=== PATIENT | male | born 1950 | race Caucasian/White ===

== ENCOUNTER 2016-10-27 02:11 | Emergency (ER) | payer MEDICAID, MEDICARE ==
[~2016-10-27] VITALS: Ht 182.9 cm; Wt 72.7 kg
[2016-10-27 02:26] VITALS: Ht 182.9 cm; Wt 72.7 kg
[2016-10-27] MEDS ORDERED: HYDROCODONE/APAP (10/325) TAB PO ONE (03:00)
[2016-10-27] MEDS ORDERED: TRAM50TA2 PO (03:22)
--- NOTE | 2016-10-27 03:29 | ERD ---
ER Documentation Chief Complaint Date/Time DATE: 10/27/16 TIME: 03:24 Chief Complaint C/O GENERALIZED CHRONIC PAIN, STATES "DOES NOT WANT TO BE OUT IN THE COLD" HPI This is a 66-year-old homeless man who is brought in complaining of thoracic pain. The patient states that he was seen at outside ER about 2 weeks ago due to a fall and says he has a compression fracture in his thoracic spine. He also states that he does not want to be sleeping in the cold rain tonight and he is here for that reason as well. 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 He has no numbness weakness complaints no vomiting chest pain shortness of breath or cough or fever ROS All systems reviewed and are negative except as per history of present illness. Medications Home Meds Active Scripts Tramadol HCl (Tramadol HCl) 50 Mg Tablet, 50 MG PO Q6, #20 TAB Prov:ADOLFO HERNANDEZTANVIHector BeltranNoemi DO 10/27/16 Allergies Allergies: Coded Allergies: Penicillins (Verified Allergy, Mild, RASH, REDNESS, 07/16/15) PMhx/Soc History of Surgery: Yes (CEREBRAL SX) Anesthesia Reaction: No Hx Neurological Disorder: No Hx Respiratory Disorders: Yes (SOB c exertion) Hx Cardiac Disorders: No Hx Psychiatric Problems: Yes (depression, anxiety) Hx Miscellaneous Medical Probl: Yes (SKIN CA, ALCOHOL ABUSE, PANCREATITIS, HTN , ANEMIA, INTRACRANIAL HEMORRHAGE) Hx Alcohol Use: Yes (A pint of Vodka daily) Hx Substance Use: Yes (oxycontin) Hx Tobacco Use: No Smoking Status: Never smoker FmHx Family History: No coronary disease Physical Exam Vitals Vital Signs Date Time Temp Pulse Resp B/P Pulse Ox O2 Delivery O2 Flow Rate FiO2 10/27/16 02:26 97.6 89 19 112/59 99 Physical Exam Const: Well-developed, well-nourished Head: Atraumatic, normocephalic Eyes: Normal Conjunctiva, PERRLA, EOMI, normal sclera, no nystagmusleft eye only. Right eye is missing with loss of skin above the right eye due to resection of cancer ENT: Normal External Ears, Nose and Mouth, moist mucus membranes. Neck: Full range of motion. No meningismus, no lymphadenopathy. Resp: Clear to auscultation bilaterally, no wheezing, rhonchi, rales Cardio: Regular rate and rhythm, no murmurs, S1 S2 present Abd: Soft, non tender x 4, non distended. Normal bowel sounds, no guarding or rebound, no pulsitile abdominal masses or bruits Skin: No petechiae or rashes, no ecchymosis , no maculopapular rash Back: [Tender mid thoracic spine midline Ext: No cyanosis, or edema, FROM x 4, normal inspection, neurovascularly intact x 4 Neur: Awake and alert, STR 5/5 x 4, sensation intact x 4, no focal findings, cerebellum intact Psych: Normal Mood and Affect Results 24 hrs Current Medications Medications (Trade) Dose Ordered Sig/Jama Route PRN Reason Start Time Stop Time Status Last Admin Dose Admin Acetaminophen/ Hydrocodone Bitart ([place] (10)) 1 tab ONCE ONCE PO 10/27/16 03:00 10/27/16 03:01 DC 10/27/16 03:13 Procedures/MDM Patient likely is here because he wants to get out of the cold rain. He is laying on his back without any pain. He is asking for snacks and water. Departure Diagnosis: Primary Impression: Back pain Back pain location: thoracic back pain Chronicity: unspecified Back pain laterality: midline Qualified Code: M54.6 - Midline thoracic back pain, unspecified chronicity Additional Impression: Homelessness Condition: Stable Patient Instructions: Back Pain (Acute Or Chronic) CALIN HERNANDEZ DO Oct 27, 2016 03:28
[2016-10-27 06:21] VITALS: BP 118/64; PULSE 78; RESP 20; TEMP 97.9
== END 2016-10-27 06:23 | disposition home or self-care (01) ==
LOC: E/R 02:11
DX: M54.6 Pain in thoracic spine (principal); I10 Essential (primary) hypertension; Z59.0 Homelessness; Z85.828 Personal history of other malignant neoplasm of skin
CPT/HCPCS: 99283

== ENCOUNTER 2016-10-30 10:22 | Emergency (ER) | payer MEDICARE ==
[~2016-10-30] VITALS: Ht 170.2 cm; Wt 70.0 kg
[~2016-10-30 10:22] MED LIST: TRAM50TA2 PO
[2016-10-30] MEDS ORDERED: KETOROLAC 30 MG INJ IV STA (10:30)
[2016-10-30] MEDS ORDERED: SOD CHLORIDE 0.9% 1,000 ML IV STA (10:30)
[2016-10-30 10:36] VITALS: Ht 170.2 cm; Wt 70.0 kg
[2016-10-30 11:16] LABS: BASOPHILS % 0.3 % (0.0-2.0); EOSINOPHILS # 0.1 10^3/ul (0.0-0.5); EOSINOPHILS % 1.7 % (0.0-7.0); HEMATOCRIT 38.8 % (42.0-52.0); HEMOGLOBIN 13.1 g/dl (14.0-18.0); LYMPHOCYTES # 0.8 10^3/ul (0.8-2.9); LYMPHOCYTES % 11.2 % (15.0-51.0); MEAN CORPUSCULAR HEMOGLOBIN 31.4 pg (29.0-33.0); MEAN CORPUSCULAR HGB CONC 33.7 g/dl (32.0-37.0); MEAN CORPUSCULAR VOLUME 93.3 fl (82.0-101.0); MEAN PLATELET VOLUME 8.4 fl (7.4-10.4); MONOCYTES % 14.6 % (0.0-11.0); NEUTROPHILS % 72.2 % (39.0-77.0); PLATELET COUNT 172 10^3/UL (140-440); RED BLOOD COUNT 4.16 10^6/ul (4.70-6.10); RED CELL DISTRIBUTION WIDTH 17.6 % (11.5-14.5); UNCORRECTED WBC 6.9 10^3/ul (4.8-10.8); WHITE BLOOD COUNT 6.9 10^3/ul (4.8-10.8)
[2016-10-30] MEDS ORDERED: HYDROCODONE/APAP (10/325) TAB PO ONE (11:30)
[2016-10-30 11:32] LABS: CONDITION 1; LH ANALYZER COMMENTS 1
[2016-10-30 12:33] LABS: ALBUMIN 3.8 g/dl (3.3-4.9); CHLORIDE 95 mmol/L (97-110)
[2016-10-30 12:34] LABS: POTASSIUM 3.3 mmol/L (3.5-5.1); SODIUM 137 mmol/L (135-144)
[2016-10-30 12:36] LABS: ALANINE AMINOTRANSFERASE 48 IU/L (13-69); ALBUMIN/GLOBULIN RATIO 1.22; ALKALINE PHOSPHATASE 117 IU/L (42-121); ANION GAP 28 (8-16); ASPARTATE AMINO TRANSFERASE 89 IU/L (15-46); BILIRUBIN,INDIRECT 0.4 mg/dl (0-1.1); BILIRUBIN,TOTAL 0.4 mg/dl (0.2-1.3); BLOOD UREA NITROGEN 13 mg/dl (7-20); CARBON DIOXIDE 17 mmol/L (21-31); CREATININE 0.64 mg/dl (0.61-1.24); GLUCOSE 108 mg/dl (70-220); TOTAL PROTEIN 6.9 g/dl (6.1-8.1)
[2016-10-30 12:37] LABS: CALCIUM 8.5 mg/dl (8.4-10.2)
[2016-10-30 12:39] LABS: ACETAMINOPHEN < 10.0 ug/ml (10.0-30.0); ETHANOL < 10.0 mg/dl; SALICYLATE < 1.0 mg/dl (5.0-30.0)
[2016-10-30] MEDS ORDERED: POTASSIUM CHLORIDE (SR) 20 MEQ TAB PO STA ×2 (13:09→17:38)
--- NOTE | 2016-10-30 13:53 | ERD ---
ER Documentation Chief Complaint Date/Time DATE: 10/30/16 TIME: 13:49 Chief Complaint BIB RA FOR EVAL OF BACK PAIN. 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 The patient denies any chest pain or pressure that radiates to the neck arm back or jaw. The patient indicates that he was seen and evaluated in the hospital 48 hours ago but given that he is homeless has been sleeping on a street close by. Indicates that he was experiencing some back pain after sleeping on the sidewalk. He has a history of chronic lower back pain and indicates that this episode of back pain is a dull achy sensation exacerbated by movement. He has no numbness or tingling of his upper or lower extremities. He denies any changes in his bladder or bowel frequency, no saddle anesthesia and no fevers no shaking or chills. He denies a headache. He has no changes in vision of his left eye. ROS All systems reviewed and are negative except as per history of present illness. Medications Home Meds Discontinued Scripts Tramadol HCl (Tramadol HCl) 50 Mg Tablet, 50 MG PO Q6, #20 TAB Prov:CALIN HERNANDEZNoemi DO 10/27/16 Allergies Allergies: Coded Allergies: Penicillins (Verified Allergy, Mild, RASH, REDNESS, 10/30/16) PMhx/Soc History of Surgery: Yes (CEREBRAL SX) Anesthesia Reaction: No Hx Neurological Disorder: No Hx Respiratory Disorders: Yes (SOB c exertion) Hx Cardiac Disorders: No Hx Psychiatric Problems: Yes (depression, anxiety) Hx Miscellaneous Medical Probl: Yes (SKIN CA, ALCOHOL ABUSE, PANCREATITIS, HTN , ANEMIA, INTRACRANIAL HEMORRHAGE) Hx Alcohol Use: Yes (A pint of Vodka daily) Hx Substance Use: Yes (oxycontin) Hx Tobacco Use: No Smoking Status: Never smoker Physical Exam Vitals Vital Signs Date Time Temp Pulse Resp B/P Pulse Ox O2 Delivery O2 Flow Rate FiO2 10/30/16 14:39 84 16 116/67 99 Room Air 10/30/16 14:19 98.9 99 16 89/54 99 Room Air 10/30/16 10:36 97.4 86 19 117/56 100 Physical Exam Constitutional:Well-developed. Well-nourished. Disheveled. HEENT:Normocephalic. Atraumatic. Left pupil is reactive to light. Right pupil is enucleated due to carcinoma that extends to the right forehead. Moist mucous membranes.No tonsillar exudates. Neck: No nuchal rigidity. No lymphadenopathy. No posterior cervical spine tenderness or step-offs. Respiratory: Not using accessory muscles of respiration.Lungs were clear to auscultation bilaterally. No rhonchi. No rales. No wheezing. Cardiovascular: Regular rate regular rhythm.No murmurs. No rubs were appreciated.S1, S2 normal. Distal pulses are palpable 2+ bilaterally. GI: Abdomen was soft. Nontender. Non Distended. No pulsatile abdominal masses or bruits. No rebound. No guarding. Bowel sounds were present and normal. Muscle skeletal: Full range of motion of both the upper and lower extremities bilaterally.Normal muscle tone.No assymetrical calf tenderness or swelling. No reproducible tenderness over the paralumbar region and no tenderness with palpation or percussion of the thoracic or lumbar spinous processes. Straight leg test negative bilaterally Skin: No petechia, no purpura. No lesions on the palms or the soles of the feet. No maculopapular rash. 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 Gait observed and normal with no ataxia.Speech had regular rate and rhythm. No focal neurological deficits. Result Diagram: 10/30/16 1058 10/30/16 1210 Results 24 hrs Laboratory Tests Test 10/30/16 10:58 10/30/16 12:10 Basophils # 0.010^3/ul Basophils % 0.3% Blood Morphology Comment Eosinophils # 0.110^3/ul Eosinophils % 1.7% Hematocrit 38.8% Hemoglobin 13.1g/dl Lymphocytes # 0.810^3/ul Lymphocytes % 11.2% Mean Corpuscular Hemoglobin 31.4pg Mean Corpuscular Hemoglobin Concent 33.7g/dl Mean Corpuscular Volume 93.3fl Mean Platelet Volume 8.4fl Monocytes # 1.010^3/ul Monocytes % 14.6% Neutrophils # 5.010^3/ul Neutrophils % 72.2% Nucleated Red Blood Cells # 0.010^3/ul Nucleated Red Blood Cells % 0.0/100WBC Platelet Count 31201^3/UL Red Blood Count 4.1610^6/ul Red Cell Distribution Width 17.6% White Blood Count 6.910^3/ul Acetaminophen Level < 10.0ug/ml Alanine Aminotransferase (ALT/SGPT) 48IU/L Albumin 3.8g/dl Albumin/Globulin Ratio 1.22 Alkaline Phosphatase 117IU/L Anion Gap 28 Aspartate Amino Transf (AST/SGOT) 89IU/L Blood Urea Nitrogen 13mg/dl Calcium Level 8.5mg/dl Carbon Dioxide Level 17mmol/L Chloride Level 95mmol/L Creatinine 0.64mg/dl Direct Bilirubin 0.00mg/dl Ethyl Alcohol Level < 10.0mg/dl Globulin 3.10g/dl Glucose Level 108mg/dl Indirect Bilirubin 0.4mg/dl Potassium Level 3.3mmol/L Salicylates Level < 1.0mg/dl Sodium Level 137mmol/L Total Bilirubin 0.4mg/dl Total Protein 6.9g/dl Current Medications Medications (Trade) Dose Ordered Sig/Jama Route PRN Reason Start Time Stop Time Status Last Admin Dose Admin Sodium Chloride (NS) 1,000 ml @ 1,000 mls/hr Q1H STAT IV 10/30/16 10:30 10/30/16 11:29 Cancel Ketorolac Tromethamine (Toradol) 30 mg ONCE STAT IV 10/30/16 10:30 10/30/16 10:31 Cancel Acetaminophen/ Hydrocodone Bitart ([place] (10/325)) 1 tab ONCE ONCE PO 10/30/16 11:30 10/30/16 11:31 DC 10/30/16 11:21 Potassium Chloride (Klor-Con 20) 20 meq ONCE STAT PO 10/30/16 13:09 10/30/16 13:23 DC Procedures/MDM The patient presented to the emergency department with back pain. My differential diagnosis included but was not limited to spinal origins of the pain such as fracture, osteomyelitis, epidural abscess, neoplasm, spondylolishtesis, discogenic, cauda equina syndrome or musculoligamentous. Nonspinal causes such as AAA, upper UTI, renal colic, aortic dissection, abdominal neoplasm were also considered as an etiology into their pain. I obtained radiographic imaging and there is no evidence of acute fracture dislocation over the two-view radiograph of the lumbar spine. I also obtained ancillary laboratory work which showed no evidence of sepsis or renal failure. The patient is homeless and I did speak with the renal social worker who kindly came to the bedside to discuss options with the patient. He was given different resources. The patient was discharged home in fair condition. They were instructed to return to the emergency department at any time if there was any worsening of their condition. The patient stated they would follow up with their PCP in the next 24-48 hours to initiate a suitable medication regimen under the care of their PCP as well as to allow their PCP to monitor any drug reactions. The patient was discharged home with prescriptions after they gave informed consent to the new medication. They were also fully informed by myself on the adverse effects and adverse drug interactions in order to provide adequate safeguards to prevent possible adverse reactions to medications. Departure Diagnosis: Primary Impression: Back pain Back pain location: low back pain Chronicity: chronic Back pain laterality : midline Sciatica presence: without sciatica Qualified Code: M54.5 - Chronic midline low back pain without sciatica Additional Impression: Homeless Condition: Fair LALI CHAPMAN Oct 30, 2016 13:53
--- NOTE | 2016-10-30 14:28 | RADRPT ---
PROCEDURE: XR Lumbar Spine. CLINICAL INDICATION: Level of fall with subsequent low back pain. TECHNIQUE: AP, lateral and cone-down lateral view of the lumbar spine were obtained. COMPARISON: No. FINDINGS: There is a levoscoliosis at the thoracolumbar junction. There is a mild dextroscoliosis of the mid lumbar spine. There are osteophytes in the upper and mid lumbar spine. The neural canal and nerve root foramina are unremarkable. There is no evidence of spondylolysis or spondylolisthesis. Vascul ar calcifications are present in the abdominal aorta and common iliac arteries. IMPRESSION: 1. There is no evidence of an acute fracture involving the lower thoracic or lumbosacral spine. 2. Mild levoscoliosis of the lower thoracic spine with a mild dextroscoliosis centered at L3-4. 3. Atherosclerotic vascular disease. RPTAT:AAJJ Physician Corrine Date Time Electronically viewed and signed by Physician Corrine on 10/30/2016 14:28 MAU/
--- NOTE | 2016-10-30 19:21 | PSY ---
Date/Time of Note Date/Time of Note DATE: 10/30/16 TIME: 19:17 Psychiatric Subjective Eval Consent Pt consented to telemedicine: Yes Subjective Evaluation Patient location: emergency Chief Complaint: BIB RA FOR EVAL OF BACK PAIN. Reason for consult: SUCIDAL IDEATION History of present illness Patient reports depressed mood, not eating for three days, decreased energy and lack of motivation. He is anhedonic and reports suicidal ideation. Yesterday, he had thoughts of jumping in front of a bus. He has never attempted or been active in psychiatric treatment. He has a long history of alcohol use and was somewhat perseverative on his family letting him down. He denies hallucinations and delusions. He denies s/s of hypomania and edyta. He reports he does not feel safe out of the hospital. Past psychiatric history As noted above. Denies outpatient and inpatient care. Hospitalization: no Family History Denies Medical history Problems Medical Problems: (1) Alcoholic intoxication Status: Acute (2) Back pain Status: Acute (3) Back pain Status: Acute (4) Confusion Status: Acute (5) Encephalopathy Status: Acute (6) Homeless Status: Acute (7) Homelessness Status: Acute Allergies: Coded Allergies: Penicillins (Verified Allergy, Mild, RASH, REDNESS, 10/30/16) Substance Abuse Substance abuse history: Yes Prior substance abuse treatmen: Yes Social History Marital status: Level of education: HS Occupation/Senior Care: Not employed Psychiatric Objective Eval Physical Examination: Physical Examination: Applicable Appetite: Decreased, Weight Loss Energy: Decreased Interest: Decreased Mental Status Examination: Appearance: Poor Hygiene Eye Contact: Fair Psychomotor Activity: Slow Behavior: Cooperative Speech: Soft AFFECT: Blunt Mood: Depressed Though Process: Linear Thought Content: Normal Suicidal: Yes Homicidal: No On 72 hour hold: No Orientation: x3 Cognition: Alert Insight: Impared Judgement: Impared Laboratory Results Laboratory Tests Test 10/30/16 10:58 10/30/16 12:10 Basophils # 0.010^3/ul Basophils % 0.3% Blood Morphology Comment Eosinophils # 0.110^3/ul Eosinophils % 1.7% Hematocrit 38.8% Hemoglobin 13.1g/dl Lymphocytes # 0.810^3/ul Lymphocytes % 11.2% Mean Corpuscular Hemoglobin 31.4pg Mean Corpuscular Hemoglobin Concent 33.7g/dl Mean Corpuscular Volume 93.3fl Mean Platelet Volume 8.4fl Monocytes # 1.010^3/ul Monocytes % 14.6% Neutrophils # 5.010^3/ul Neutrophils % 72.2% Nucleated Red Blood Cells # 0.010^3/ul Nucleated Red Blood Cells % 0.0/100WBC Platelet Count 23454^3/UL Red Blood Count 4.1610^6/ul Red Cell Distribution Width 17.6% White Blood Count 6.910^3/ul Acetaminophen Level < 10.0ug/ml Alanine Aminotransferase (ALT/SGPT) 48IU/L Albumin 3.8g/dl Albumin/Globulin Ratio 1.22 Alkaline Phosphatase 117IU/L Anion Gap 28 Aspartate Amino Transf (AST/SGOT) 89IU/L Blood Urea Nitrogen 13mg/dl Calcium Level 8.5mg/dl Carbon Dioxide Level 17mmol/L Chloride Level 95mmol/L Creatinine 0.64mg/dl Direct Bilirubin 0.00mg/dl Ethyl Alcohol Level < 10.0mg/dl Globulin 3.10g/dl Glucose Level 108mg/dl Indirect Bilirubin 0.4mg/dl Potassium Level 3.3mmol/L Salicylates Level < 1.0mg/dl Sodium Level 137mmol/L Total Bilirubin 0.4mg/dl Total Protein 6.9g/dl Assessment and Plan Assessment/Diagnosis [place] I: Unspecified Depressive Disorder, Alcohol Use Disorder Recommendation/Plan Medication Management Per inpatient psychiatry Psychotherapy N/A Pt. Caregiver/Family Education N/A Follow-up/Disposition Patient is willing to go voluntary to inpatient psychiatry. [id number] Recommendation: Pt willing to go voluntary. Reports DTS. Does not want to act on thoughts. ZAMZAM WALLS Oct 30, 2016 19:21
[2016-10-30] MEDS ORDERED: ACETAMINOPHEN 325 MG TAB PO ONE (21:30)
--- NOTE | 2016-10-31 13:07 | QN ---
Documentation Comment Patient has been accepted to [facility] and will be transferred for inpatient psychiatric placement. ARACELI PEOPLES MD Oct 31, 2016 13:07
[2016-10-31 15:45] VITALS: BP 91/60; PULSE 70; RESP 18; TEMP 98.3
== END 2016-10-31 15:56 ==
LOC: E/R 10:22
DX: M54.5 Low back pain (principal); I10 Essential (primary) hypertension; Z59.0 Homelessness; Z85.828 Personal history of other malignant neoplasm of skin
CPT/HCPCS: 36415; 72100; 80053; 80306; 85025; J7030